=== PATIENT | female | born 1995 | race African-American/Black ===

== ENCOUNTER 2016-12-24 18:01 | Emergency (ER) | payer OTHER ==
[~2016-12-24] VITALS: Ht 149.9 cm; Wt 47.6 kg
[~2016-12-24 18:01] MED LIST: DOXY25TA38 PO; METO10TA81 PO; PYRI25TA3 PO
[2016-12-24 18:03] VITALS: BP 103/55
--- NOTE | 2016-12-24 18:35 | PHYS DOC ---
Past Medical History Past Medical History: No Pertinent History Past Surgical History: No Surgical History Alcohol Use: Occasionally Drug Use: None Adult General Chief Complaint Chief Complaint: BACK PAIN - NO INJURY [facility] HPI Patient is a 21 year old female presents to the emergency department stating that she has an area on her left upper back that has been very painful and tender. She states that she took her mom's muscle relaxer try to help with the area she thought it was a muscle spasm. She states she had no relief with the muscle relaxer. Patient did not try any other medications such as Tylenol or ibuprofen. Patient states that those medications do not work for her. Review of Systems Review of Systems Constitutional: Denies fever or chills [] Eyes: Denies change in visual acuity, redness, or eye pain [] HENT: Denies nasal congestion or sore throat [] Respiratory: Denies cough or shortness of breath [] Cardiovascular: No additional information not addressed in HPI [] GI: Denies abdominal pain, nausea, vomiting, bloody stools or diarrhea [] : Denies dysuria or hematuria [] Musculoskeletal: Denies back pain or joint pain [] Integument: Denies rash or skin lesions. Patient with an area to the left upper shoulder area that appears to be very hard and tender. It appears to be have not. Neurologic: Denies headache, focal weakness or sensory changes [] Endocrine: Denies polyuria or polydipsia [] Allergies Allergies Allergies Coded Allergies Type Severity Reaction Last Updated Verified No Known Drug Allergies 06/14/13 No Physical Exam Physical Exam Constitutional: Well developed, well nourished, no acute distress, non-toxic appearance. [] HENT: Normocephalic, atraumatic, bilateral external ears normal, oropharynx moist, no oral exudates, nose normal. Bilateral tympanic membranes appear to be normal. Throat with redness noted no exudate no erythematous. Eyes: PERRLA, EOMI, conjunctiva normal, no discharge. [] Neck: Normal range of motion, no tenderness, supple, no stridor. [] Cardiovascular:Heart rate regular rhythm, no murmur [] Lungs & Thorax: Bilateral breath sounds clear to auscultation [] Skin: Warm, dry, no erythema, no rash. Patient with an area to the left upper back and appears to be a small encapsulated not that is slightly movable. There is no redness no drainage or discharge coming from the site. It appears to be the size of a pea. Back: No tenderness Extremities: No tenderness, no cyanosis, no clubbing, ROM intact, no edema. [] Neurologic: Alert and oriented X 3, normal motor function, normal sensory function, no focal deficits noted. [] Psychologic: Affect normal, judgement normal, mood normal. [] Current Patient Data Vital Signs Vital Signs Date Time Temp Pulse Resp B/P (MAP) Pulse Ox O2 Delivery O2 Flow Rate FiO2 12/24/16 18:03 98.7 88 18 103/55 (71) 99 Room Air 98.7 EKG EKG [] Radiology/Procedures Radiology/Procedures [] Course & Med Decision Making Course & Med Decision Making Pertinent Labs and Imaging studies reviewed. 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 Patient was recommended to use Tylenol or ibuprofen for pain and discomfort. Patient will be discharged home in stable condition. She'll be provided with a doctor's list in order to follow up with her primary care physician. Patient agrees with discharge instructions, treatment regimens and follow-up recommendations. Signs and symptoms to return back to the emergency department has been provided. All questions and concerns have been answered at the patient's bedside. [] Dragon Disclaimer Dragon Disclaimer This electronic medical record was generated, in whole or in part, using a voice recognition dictation system. Departure Departure Impression: Primary Impression: Cyst of skin Disposition: HOME, SELF-CARE Condition: STABLE Referrals: NO PCP (PCP) Patient Instructions: Epidermal Cyst, [id number] Additional Instructions: Activity as tolerated Tylenol or Ibuprofen for pain and discomfort Warm moist packs to area several times a day Followup with primary care provider in 3-5 days Return to emergency department as needed for signs and symptoms that become worse. LEONA HUFF APRN Dec 24, 2016 18:35
== END 2016-12-24 18:57 | disposition home or self-care (01) ==
LOC: ER 18:01
DX: L72.8 Other follicular cysts of the skin and subcutaneous tissue (principal); M54.6 Pain in thoracic spine
CPT/HCPCS: 99281

== ENCOUNTER 2018-08-24 21:02 | Emergency (ER) | payer OTHER ==
[~2018-08-24] VITALS: Ht 149.9 cm; Wt 44.0 kg
[~2018-08-24 21:02] MED LIST changes: -DOXY25TA38 PO; +DOXY25TA49 PO
[2018-08-24] MEDS ORDERED: IV NORMAL SALINE 1000ML BAG 1,000 ML IV SCH (22:30)
[2018-08-24] MEDS ORDERED: PROCHLORPERAZINE 10 MG/2 ML VIAL. IV ONE (22:30)
--- NOTE | 2018-08-24 22:46 | PHYS DOC ---
Past Medical History Past Medical History: No Pertinent History (LYNDSEY CRUZ APRN) Past Surgical History: Other Additional Past Surgical Histo: (LYNDSEY CRUZ APRN) Additional Information: non smoking Alcohol Use: Rarely Drug Use: None (LYNDSEY CRUZ APRN) Adult General Chief Complaint Chief Complaint: VOMITING IN HPI HPI The patient is a 23-year-old female who presents stating that she is 8 weeks and 2 days . Last menstrual period was June 27. She is a [id number]. The patient saw her primary care doctor who also does OB care 2 weeks ago. Her name is Dr. Rodriguez. Since that time she has been having severe nausea and vomiting and having difficulty keeping food and drink down. The patient has been seen in the ER at [facility] as well. She states they tried Zofran ODT and Pyroxine for nausea and that is not working. She also has tried Scopolamine. She rates the nausea 10/10 in severity. (LYNDSEY CRUZ APRN) Review of Systems Review of Systems Constitutional: Denies fever or chills [] Eyes: Denies change in visual acuity, redness, or eye pain [] HENT: Denies nasal congestion or sore throat [] Respiratory: Denies cough. Reports mild SOB since she became . [] Cardiovascular: Denies CP or syncope. GI: Denies abdominal pain, bloody stools or diarrhea. Reports nausea and vomiting. Difficulty keeping food/drink down. [] : Denies vaginal bleeding. Musculoskeletal: Denies back pain or joint pain [] Integument: Denies rash or skin lesions [] Neurologic: Reports intermittent headache, denies focal weakness or sensory changes [] Endocrine: Denies polyuria or polydipsia [] Complete systems were reviewed and found to be within normal limits, except as documented in this note. (LYNDSEY CRUZ APRN) Current Medications Current Medications Current Medications Medications (Trade) Dose Ordered Sig/Fabrice Start Time Stop Time Status Last Admin Dose Admin Prochlorperazine Edisylate (Compazine) 10 mg 1X ONCE 08/24/18 22:30 08/24/18 22:31 DC 08/24/18 22:37 10 MG Sodium Chloride 1,000 ml @ 1,000 mls/hr Q1H 08/24/18 22:30 08/24/18 23:29 DC 08/24/18 22:39 1,000 MLS/HR (LYNDSEY WHITE DO) Allergies Allergies Allergies Coded Allergies Type Severity Reaction Last Updated Verified diphenhydramine Allergy Intermediate Hives 08/24/18 Yes (LYNDSEY WHITE DO) Physical Exam Physical Exam Constitutional: No acute distress, non-toxic appearance. [] HENT: Normocephalic, atraumatic, oropharynx moist, no oral exudates, nose normal. [] Eyes: PERRLA, conjunctiva normal, no discharge. [] Neck: No stridor. [] Cardiovascular:Heart rate regular rhythm, no murmur [] Lungs & Thorax: Bilateral breath sounds clear to auscultation [] Abdomen: Soft, no tenderness, no masses, no pulsatile masses. [] Skin: Warm, dry, no erythema, no rash. [] Back: No tenderness, no CVA tenderness. [] Extremities: No tenderness, no cyanosis, ROM intact, no edema. [] Neurologic: Alert and oriented X 3, normal motor function, normal sensory f unction, no focal deficits noted. [] Psychologic: Affect normal, judgement normal, mood normal. [] (LYNDSEY CRUZ APRN) Current Patient Data Vital Signs Vital Signs Date Time Temp Pulse Resp B/P (MAP) Pulse Ox O2 Delivery O2 Flow Rate FiO2 08/25/18 00:32 89 16 96/56 (69) 97 Room Air 08/24/18 21:16 98.7 98.7 (LYNDSEY WHITE DO) Lab Values Laboratory Tests Test 08/24/18 23:50 Urine Collection Type Unknown Urine Color Yellow Urine Clarity Turbid Urine pH 6.0 Urine Specific [place] 1.015 Urine Protein Negative mg/dL (NEG-TRACE) Urine Glucose (UA) Negative mg/dL (NEG) Urine Ketones (Stick) >=80 mg/dL (NEG) Urine Blood Negative (NEG) Urine Nitrite Negative (NEG) Urine Bilirubin Negative (NEG) Urine Urobilinogen Dipstick 0.2 mg/dL (0.2 mg/dL) Urine Leukocyte Esterase Small (NEG) Urine RBC 0 /HPF (0-2) Urine WBC 1-4 /HPF (0-4) Urine Squamous Epithelial Cells Many /LPF Urine Bacteria Mod /HPF (0-FEW) Urine Mucus Mod /LPF (LYNDSEY WHITE DO) Lab Values Laboratory Tests Test 08/24/18 23:50 Urine Collection Type Unknown Urine Color Yellow Urine Clarity Turbid Urine pH 6.0 Urine Specific [place] 1.015 Urine Protein Negative mg/dL (NEG-TRACE) Urine Glucose (UA) Negative mg/dL (NEG) Urine Ketones (Stick) >=80 mg/dL (NEG) Urine Blood Negative (NEG) Urine Nitrite Negative (NEG) Urine Bilirubin Negative (NEG) Urine Urobilinogen Dipstick 0.2 mg/dL (0.2 mg/dL) Urine Leukocyte Esterase Small (NEG) Urine RBC 0 /HPF (0-2) Urine WBC 1-4 /HPF (0-4) Urine Squamous Epithelial Cells Many /LPF Urine Bacteria Mod /HPF (0-FEW) Urine Mucus Mod /LPF (LYNDSEY CRUZ APRN) EKG EKG [] (LYNDSEY CRUZ APRN) Radiology/Procedures Radiology/Procedures [] (LYNDSEY CRUZ APRN) Course & Med Decision Making Course & Med Decision Making Pertinent Labs and Imaging studies reviewed. (See chart for details) Talked to patient about trying additional nausea medication that is different then what she has tried. Also will give IV fluids and check urine sample. Patient declines a further workup. Patient is agreeable to plan of care. 23:20: Reevaluated patient. Patient is sleeping and states that she is not nauseous at this time. Will PO challenge and if successful discharge as long as urine is negative. Still waiting on Urinalysis at this time. 23:52: Reevaluated patient. Was able to keep crackers and water down. Urinalysis has been sent. Waiting for results. 12:15: Urinalysis is back. It shows a small UTI. Will treat with Keflex. Patient is agreeable to plan. (LYNDSEY CRUZ APRN) Dragon Disclaimer Dragon Disclaimer This electronic medical record was generated, in whole or in part, using a voice recognition dictation system. (LYNDSEY CRUZ APRN) Departure Departure Impression: Primary Impression: Nausea and vomiting during Additional Impression: UTI (urinary tract infection) during Disposition: 01 HOME, SELF-CARE Condition: STABLE Referrals: UNKNOWN PCP NAME (PCP) Scripts Cephalexin (KEFLEX) 500 Mg Capsule 1 CAP PO BID, #14 CAP 0 Refills Prov: LYNDSEY CRUZ APRN 08/25/18 Prochlorperazine Maleate (Compazine) 10 Mg Tablet 10 MG PO TID PRN for NAUSEA, #30 TAB 0 Refills Prov: LYNDSEY CRUZ APRN 08/24/18 Attending Signature Attending Signature I have reviewed the PA/WATER FILTERER HELPER's note and plan of care. I was available for consultation as needed during the patient's visit in the emergency department. I agree with the clinical impression, plan, and disposition. (LYNDSEY WHITE DO) Problem Qualifiers Additional Impression: UTI (urinary tract infection) during Trimester: first trimester Qualified Codes: O23.41 - Unspecified infection of urinary tract in , first trimester LYNDSEY CRUZ APRN Aug 24, 2018 22:46 LYNDSEY WHITE DO Aug 25, 2018 06:01
[2018-08-24] MEDS ORDERED: PROC10TA57 PO (23:26)
[2018-08-25] LABS: BILIRUBIN,URINE NEGATIVE (NEG); CLARITY,URINE TURBID; COLOR,URINE YELLOW; NITRITE,URINE NEGATIVE (NEG); PROTEIN,URINE NEGATIVE (NEG-TRACE); UROBILINOGEN,URINE 0.2 mg/dL (0.2 mg/dL)
[2018-08-25 00:04] LABS: BACTERIA,URINE MOD /HPF (0-FEW); RBC,URINE 0 /HPF (0-2); SQUAMOUS EPITHELIAL CELL,UR MANY /LPF
[2018-08-25] MEDS ORDERED: CEPH-264 PO (00:14)
[2018-08-25 00:32] VITALS: BP 96/56
== END 2018-08-25 00:32 | disposition home or self-care (01) ==
LOC: ER 21:02
DX: O23.41 Unspecified infection of urinary tract in pregnancy, first trimester (principal); O21.9 Vomiting of pregnancy, unspecified; Z3A.08 8 weeks gestation of pregnancy; Z88.5 Allergy status to narcotic agent
CPT/HCPCS: 81001; 96361; 96374; 99284; J0780; J7030

== ENCOUNTER 2018-09-04 11:38 | Emergency (ER) | payer OTHER ==
[~2018-09-04] VITALS: Ht 149.9 cm; Wt 44.0 kg
[~2018-09-04 11:38] MED LIST changes: +CEPH-264 PO; +PROC10TA57 PO
--- NOTE | 2018-09-04 12:45 | PHYS DOC ---
Past Medical History Past Medical History: No Pertinent History Past Surgical History: Other Additional Past Surgical Histo: Alcohol Use: Rarely Drug Use: None Adult General Chief Complaint Chief Complaint: VOMITING IN HPI HPI Patient is a 23 year old female whom is 9 weeks presents to ED complaining of abdominal pain and nausea/vomiting worsening over the last week. States that she's been vomiting and unable to hold anything down. States she started out with Zofran and has been on the Compazine from her doctor since zofran wasn't working. States she was sent to the ED for IV fluids. She is . Describes abdominal pain as crampy. Rates the pain as 4/10. LMP was beginning of June. Denies chest pain, shortness of breath, diarrhea, blood in stool, vaginal discharge/bleeding, STD exposure, dysuria, hematuria or fever. Review of Systems Review of Systems Constitutional: Denies fever or chills [] Eyes: Denies change in visual acuity, redness, or eye pain [] HENT: Denies nasal congestion or sore throat [] Respiratory: Denies cough or shortness of breath [] Cardiovascular: No additional information not addressed in HPI [] GI: Complains of abdominal pain, nausea/vomiting. Denies bloody stools or diarrhea [] : Denies dysuria or hematuria [] Musculoskeletal: Denies back pain or joint pain [] Integument: Denies rash or skin lesions [] Neurologic: Denies headache, focal weakness or sensory changes [] All other systems were reviewed and found to be within normal limits, except as documented in this note. Current Medications Current Medications Current Medications Medications (Trade) Dose Ordered Sig/Fabrice Start Time Stop Time Status Last Admin Dose Admin Prochlorperazine Edisylate (Compazine) 10 mg 1X ONCE 09/04/18 13:00 09/04/18 13:01 DC 09/04/18 13:00 10 MG Sodium Chloride 1,000 ml @ 1,000 mls/hr 1X ONCE 09/04/18 13:00 09/04/18 13:59 DC 09/04/18 13:00 1,000 MLS/HR Allergies Allergies Allergies Coded Allergies Type Severity Reaction Last Updated Verified diphenhydramine Allergy Intermediate Hives 08/24/18 Yes Physical Exam Physical Exam Constitutional: Well developed, well nourished, no acute distress, non-toxic appearance. [] HENT: Normocephalic, atraumatic Eyes: PERRLA, EOMI, conjunctiva normal, no discharge. [] Neck: Normal range of motion, no tenderness, supple, no stridor. [] Cardiovascular:Heart rate regular rhythm, no murmur [] Lungs & Thorax: Bilateral breath sounds clear to auscultation [] Abdomen: Bowel sounds normal, soft, Mild lower abdominal tenderness, no masses, no pulsatile masses. [] : refused. Skin: Warm, dry, no erythema, no rash. [] Back: No tenderness, no CVA tenderness. [] Extremities: No tenderness, no cyanosis, no clubbing, ROM intact, no edema. [] Neurologic: Alert and oriented X 3, normal motor function, normal sensory function, no focal deficits noted. [] Psychologic: Affect normal, judgement normal, mood normal. [] Current Patient Data Vital Signs Vital Signs Date Time Temp Pulse Resp B/P (MAP) Pulse Ox O2 Delivery O2 Flow Rate FiO2 09/04/18 14:14 78 94/51 (65) 100 Room Air 09/04/18 12:35 98.7 16 98.7 Lab Values Laboratory Tests Test 09/04/18 12:31 09/04/18 12:42 09/04/18 13:05 Urine Collection Type Unknown Urine Color Yellow Urine Clarity Clear Urine pH 6.0 Urine Specific [place] 1.020 Urine Protein Negative mg/dL (NEG-TRACE) Urine Glucose (UA) Negative mg/dL (NEG) Urine Ketones (Stick) >=80 mg/dL (NEG) Urine Blood Negative (NEG) Urine Nitrite Negative (NEG) Urine Bilirubin Small (NEG) Urine Urobilinogen Dipstick 1.0 mg/dL (0.2 mg/dL) Urine Leukocyte Esterase Moderate (NEG) Urine RBC 0 /HPF (0-2) Urine WBC 5-10 /HPF (0-4) Urine Squamous Epithelial Cells Many /LPF Urine Bacteria Mod /HPF (0-FEW) Urine Mucus Marked /LPF White Blood Count 9.7 x10^3/uL (4.0-11.0) Red Blood Count 4.42 x10^6/uL (3.50-5.40) Hemoglobin 13.2 g/dL (12.0-15.5) Hematocrit 38.3 % (36.0-47.0) Mean Corpuscular Volume 87 fL (79-100) Mean Corpuscular Hemoglobin 30 pg (25-35) Mean Corpuscular Hemoglobin Concent 35 g/dL (31-37) Red Cell Distribution Width 13.0 % (11.5-14.5) Platelet Count 336 x10^3/uL (140-400) Neutrophils (%) (Auto) 79 % (31-73) H Lymphocytes (%) (Auto) 14 % (24-48) L Monocytes (%) (Auto) 5 % (0-9) Eosinophils (%) (Auto) 2 % (0-3) Basophils (%) (Auto) 0 % (0-3) Neutrophils # (Auto) 7.7 x10^3uL (1.8-7.7) Lymphocytes # (Auto) 1.3 x10^3/uL (1.0-4.8) Monocytes # (Auto) 0.5 x10^3/uL (0.0-1.1) Eosinophils # (Auto) 0.2 x10^3/uL (0.0-0.7) Basophils # (Auto) 0.0 x10^3/uL (0.0-0.2) Maternal Serum HCG Beta Subunit 395004 mIU/mL (0-5) H Sodium Level 136 mmol/L (136-145) Potassium Level 3.4 mmol/L (3.5-5.1) L Chloride Level 97 mmol/L (98-107) L Carbon Dioxide Level 24 mmol/L (21-32) Anion Gap 15 (6-14) H Blood Urea Nitrogen 7 mg/dL (7-20) Creatinine 0.8 mg/dL (0.6-1.0) Estimated GFR (Cockcroft-Gault) 106.6 BUN/Creatinine Ratio 9 (6-20) Glucose Level 86 mg/dL (70-99) Calcium Level 10.2 mg/dL (8.5-10.1) H Total Bilirubin 0.6 mg/dL (0.2-1.0) Aspartate Amino Transferase (AST) 18 U/L (15-37) Alanine Aminotransferase (ALT) 15 U/L (14-59) Alkaline Phosphatase 48 U/L (46-116) Total Protein 8.7 g/dL (6.4-8.2) H Albumin 4.3 g/dL (3.4-5.0) Albumin/Globulin Ratio 1.0 (1.0-1.7) POC Urine HCG, Qualitative Hcg positive (Negative) Laboratory Tests 09/04/18 12:42 Laboratory Tests 09/04/18 12:42 EKG EKG [] Radiology/Procedures Radiology/Procedures []First trimester ultrasound less than 14 weeks: Indications: Abdominal pain and vomiting and . Findings: Transabdominal study: Number of fetuses: Single. Average crown-rump length: 3.24 cm which corresponds to an approximate gestational age of 10 weeks and 1 day +/- 6 days. EDC is April 01, 2019. EDC by LMP is April 03, 2019. Sac shape and amniotic fluid volume: Normal. heart rate: 169 beats per minute Placenta location: Indeterminate due to the early stage of gestation. Cervical length: 3.5 cm. Extrachorionic hemorrhage: None. Uterus: No uterine fibroids are seen. Maternal ovaries: Right ovary: 3.5 cm x 1.2 cm x 1.6 cm. Normal. Left ovary: 2.2 cm x 4.8 cm x 2.7 cm. Normal. Adnexa: no adnexal masses are seen. Free fluid: None. Impression: Single intrauterine gestation with approximate gestational age of 10 weeks and 1 day with an EDC of April 01, 2019. heart rate is 169 beats per minute. Course & Med Decision Making Course & Med Decision Making Pertinent Labs and Imaging studies reviewed. (See chart for details) []Discussed lab and imaging findings with patient. Patient states she's feeling much better. On reexamination, abdomen is soft nontender nondistended. No peritoneal signs. Tolerating by mouth. Discussed follow-up with SUPERVISOR P[employer] for repeat beta hCG monitoring and ultrasound. Discussed reasons to return to ED. Patient understands and agrees with plan. Dragon Disclaimer Dragon Disclaimer This electronic medical record was generated, in whole or in part, using a voice recognition dictation system. Departure Departure Impression: Primary Impression: Abdominal pain affecting Additional Impression: Nausea and vomiting during Disposition: HOME, SELF-CARE Condition: IMPROVED Referrals: UNKNOWN PCP NAME (PCP) BRIAN VALDERRAMA Jr, MD Patient Instructions: Abdominal Pain During , Nausea and Vomiting Problem Qualifiers LUCIO VENTURA September 04, 2018 12:45
[2018-09-04] MEDS ORDERED: PROCHLORPERAZINE 10 MG/2 ML VIAL. IV ONE (13:00)
[2018-09-04] MEDS ORDERED: IV NORMAL SALINE 1000ML BAG 1,000 ML IV ONE (13:00)
[2018-09-04 13:09] LABS: CALCIUM 10.2 mg/dL (8.5-10.1); CREATININE 0.8 mg/dL (0.6-1.0); GFR 106.6; POTASSIUM 3.4 mmol/L (3.5-5.1)
[2018-09-04 13:14] LABS: BASO % 0 % (0-3); EOS # 0.2 x10^3/uL (0.0-0.7); EOS % 2 % (0-3); HEMATOCRIT 38.3 % (36.0-47.0); HEMOGLOBIN 13.2 g/dL (12.0-15.5); LYMPH # 1.3 x10^3/uL (1.0-4.8); LYMPH % 14 % (24-48); MEAN CORPUSCULAR HEMOGLOBIN 30 pg (25-35); MEAN CORPUSCULAR HGB CONC 35 g/dL (31-37); MEAN CORPUSCULAR VOLUME 87 fL (79-100); MONO # 0.5 x10^3/uL (0.0-1.1); MONO % 5 % (0-9); NEUT # 7.7 x10^3uL (1.8-7.7); NEUT % 79 % (31-73); PLATELET COUNT 336 x10^3/uL (140-400); RED BLOOD COUNT 4.42 x10^6/uL (3.50-5.40); WHITE BLOOD COUNT 9.7 x10^3/uL (4.0-11.0)
[2018-09-04 13:16] LABS: ALBUMIN 4.3 g/dL (3.4-5.0); TOTAL BILIRUBIN 0.6 mg/dL (0.2-1.0); TOTAL PROTEIN 8.7 g/dL (6.4-8.2)
[2018-09-04 13:30] LABS: BILIRUBIN,URINE SMALL (NEG); CLARITY,URINE CLEAR; COLOR,URINE YELLOW; NITRITE,URINE NEGATIVE (NEG); PROTEIN,URINE NEGATIVE (NEG-TRACE)
[2018-09-04 13:52] LABS: BACTERIA,URINE MOD /HPF (0-FEW); RBC,URINE 0 /HPF (0-2); SQUAMOUS EPITHELIAL CELL,UR MANY /LPF
[2018-09-04 14:14] VITALS: BP 94/51
--- NOTE | 2018-09-04 14:43 | RAD ---
First trimester ultrasound less than 14 weeks: Indications: Abdominal pain and vomiting and . Findings: Transabdominal study: Number of fetuses: Single. Average crown-rump length: 3.24 cm which corresponds to an approximate gestational age of 10 weeks and 1 day +/- 6 days. EDC is April 01, 2019. EDC by LMP is April 03, 2019. Sac shape and amniotic fluid volume: Normal. heart rate: 169 beats per minute Placenta location: Indeterminate due to the early stage of gestation. Cervical length: 3.5 cm. Extrachorionic hemorrhage: None. Uterus: No uterine fibroids are seen. Maternal ovaries: Right ovary: 3.5 cm x 1.2 cm x 1.6 cm. Normal. Left ovary: 2.2 cm x 4.8 cm x 2.7 cm. Normal. Adnexa: no adnexal masses are seen. Free fluid: None. Impression: Single intrauterine gestation with approximate gestational age of 10 weeks and 1 day with an EDC of April 01, 2019. heart rate is 169 beats per minute. Electronically signed by: Nishant Ragland MD (09/04/2018 2:40 PM) [place] [id number]
--- NOTE | 2018-09-11 11:00 | NUR ---
Late entry made to Medical Record. IV Stop time transcribed from eMAR to IV spreadsheet
== END 2018-09-04 15:18 | disposition home or self-care (01) ==
LOC: ER 11:38
DX: O21.9 Vomiting of pregnancy, unspecified (principal); Z3A.09 9 weeks gestation of pregnancy; Z88.5 Allergy status to narcotic agent
CPT/HCPCS: 36415; 76801; 80053; 81001; 81025; 84702; 85025; 96361; 96374; 99285; J0780; J7030